=== PATIENT | male | born 1960 | race African-American/Black ===

== ENCOUNTER 2018-06-13 12:33 | Inpatient (IN) | payer MEDICAID ==
[~2018-06-13] VITALS: Ht 190.5 cm; Wt 119.2 kg
[2018-06-13] MEDS ORDERED: HYDROmorphone HCL 2 MG/ML VL IV ONE (14:00)
[2018-06-13] MEDS ORDERED: ONDANSETRON HCL 4 MG/2 ML VIAL IV ONE (14:00)
[2018-06-13 14:54] LABS: Basophils # (auto) 0.1 uL; Basophils % (auto) 0.3 % (0.0-2.0); Eosinophils # (auto) 0 uL; Eosinophils % (auto) 0.1 % (0.0-7.0); Hematocrit 42.9 % (41.0-53.0); Hemoglobin 15.2 g/dL (13.5-17.5); Lymphocytes # (auto) 1.2 uL; Lymphocytes % (auto) 6.7 % (10.0-50.0); Mean Corpuscular Hemoglobin 30.5 pg (28.0-32.0); Mean Corpuscular Hgb Conc. 35.4 g/dL (32.0-36.0); Mean Corpuscular Volume 86.1 fL (80.0-100.0); Monocytes % (auto) 5.6 % (0.0-12.0); Neutrophils # (auto) 15.5 uL; Neutrophils % (auto) 87.3 % (37.0-80.0); Platelet Count (auto) 238 10^3/uL (140-450); Red Blood Cells 4.98 10^6/uL (4.5-5.90); Red Cell Distribution Width 13.1 % (11.8-14.3); White Blood Cell 17.8 10^3/uL (4.4-10.8)
[2018-06-13 15:05] LABS: INR 0.99 (0.9-1.15); Partial Thromboplastin Time 25.2 sec (23.78-33.04); Prothrombin Time 10.6 sec (9.27-12.13)
[2018-06-13 15:09] LABS: BUN/Creatinine Ratio 12.2; Calcium 8.9 mg/dL (8.5-10.1); Potassium 3.4 mmol/L (3.5-5.1)
[2018-06-13 15:11] LABS: Bilirubin, Total 0.5 mg/dL (0.2-1.0); Total Protein 7.6 g/dL (6.4-8.2)
[2018-06-13] MEDS ORDERED: LORazepam 0.5 MG TAB PO PRN (15:45)
[2018-06-13] MEDS ORDERED: TEMAZEPAM 15 MG CAP PO PRN (15:45)
[2018-06-13] MEDS ORDERED: POTASSIUM EFFERVESENT TAB 25 MEQ PO ONE (15:45)
[2018-06-13] MEDS ORDERED: LACTULOSE 20Gm/30ML SOLN PO PRN (15:45)
[2018-06-13] MEDS ORDERED: NITROGLYCERIN 0.4 MG SL TAB SL PRN (15:45)
[2018-06-13] MEDS ORDERED: MORPHINE SULFATE 4 MG/ML SYR/VIAL IV PRN (15:45)
[2018-06-13] MEDS: SODIUM CHLORIDE 0.9% 1,000 ML IV SCH ×2 (15:58→23:00)
[2018-06-13] MEDS ORDERED: METO-158 PO (17:21)
[2018-06-13] MEDS ORDERED: LIDO2SOL18 TD (17:21)
[2018-06-13] MEDS ORDERED: HYDR-4683 PO (17:21)
[2018-06-13] MEDS ORDERED: KEP500T PO (17:21)
[2018-06-13] MEDS ORDERED: FENO1TAB42 PO (17:21)
[2018-06-13] MEDS ORDERED: HYDR25TA4 PO (17:21)
[2018-06-13] MEDS: HYDROcodone-ACET 5/325MG TAB PO PRN (18:36)
[2018-06-13 19:11] LABS: Urine Bacteria NONE SEEN /hpf (None Seen); Urine Blood Negative /uL (Negative); Urine Specific Gravity 1.018 (1.001-1.035); Urine WBC 1 /hpf (0 - 3)
[2018-06-13] MEDS: PROMETHAZINE HCL 25 MG/ML 1ML IV PRN (20:39)
[2018-06-13] MEDS: MORPHINE SULFATE 4 MG/ML SYR/VIAL IV PRN (20:39)
[2018-06-13 21:40] VITALS: BP 137/76
--- NOTE | 2018-06-13 21:40 | NUR ---
Telemetry admit from [facility] admitted to Telemetry unit. Patient oriented to Breann ghosh RN, unit, room, bed, and unit policies regarding patient care and visiting hours. Patient now on continuous telemetry monitoring, tele box # [id number]. Patient weighed by bedscale and encouraged to call if he needs something. All questions and concerns addressed, patient verbalized understanding.
[2018-06-13 22:00] VITALS: BP 134/76
--- NOTE | 2018-06-13 23:15 | NUR ---
Hospitalist paged Need order for diet, awaiting call back.
--- NOTE | 2018-06-13 23:30 | NUR ---
Patients called Patients called to check status of patient. Password given and confirmed. Patients had questions regarding surgery and plan of care, informed her that she would need to speak with the doctor, she verbalized understanding. Informed that patient was resting. She stated that she would be in tomorrow morning to see patient.
[2018-06-14] MEDS: MORPHINE SULFATE 4 MG/ML SYR/VIAL IV PRN ×5 (04:36→23:07)
[2018-06-14] MEDS: PROMETHAZINE HCL 25 MG/ML 1ML IV PRN ×3 (04:36→17:36)
[2018-06-14 05:00] VITALS: BP 123/69
[2018-06-14 06:49] LABS: Basophils # (auto) 0 uL; Basophils % (auto) 0.1 % (0.0-2.0); Eosinophils # (auto) 0 uL; Eosinophils % (auto) 0.1 % (0.0-7.0); Hematocrit 38.7 % (41.0-53.0); Hemoglobin 13.8 g/dL (13.5-17.5); Lymphocytes # (auto) 1.2 uL; Lymphocytes % (auto) 8.3 % (10.0-50.0); Mean Corpuscular Hemoglobin 30.7 pg (28.0-32.0); Mean Corpuscular Hgb Conc. 35.8 g/dL (32.0-36.0); Mean Corpuscular Volume 85.8 fL (80.0-100.0); Monocytes # (auto) 1.5 uL; Monocytes % (auto) 10.5 % (0.0-12.0); Neutrophils # (auto) 11.2 uL; Platelet Count (auto) 199 10^3/uL (140-450); Red Blood Cells 4.51 10^6/uL (4.5-5.90); Red Cell Distribution Width 12.7 % (11.8-14.3); White Blood Cell 13.9 10^3/uL (4.4-10.8)
[2018-06-14 07:02] LABS: Albumin 3.2 g/dL (3.4-5.0); BUN/Creatinine Ratio 13.1; Calcium 8.2 mg/dL (8.5-10.1); Potassium 3.4 mmol/L (3.5-5.1)
[2018-06-14 07:05] LABS: Bilirubin, Total 0.9 mg/dL (0.2-1.0); Total Protein 6.5 g/dL (6.4-8.2)
--- NOTE | 2018-06-14 07:40 | NUR ---
Opening Shift Note Assumed care of patient, asleep. No S/S of distress/SOB. Will continue to monitor for changes Q1hr and PRN.
[2018-06-14 09:43] VITALS: BP 161/75
--- NOTE | 2018-06-14 10:53 | NUR ---
Patient states he wants to go to the bathroom. Offered bedpan, patient refused. Patient states "I want to go to the bathroom". Paged physical therapist.
--- NOTE | 2018-06-14 11:42 | NUR ---
Contacted Dr. Aparna Coleman. Left a message re: if okay to resume home medications: Keppra, Fenofibrate, Hydrochlorothiazide and Metoprolol.
[2018-06-14] MEDS ORDERED: METOPROLOL TARTRATE 50 MG TAB PO ONE (12:45)
[2018-06-14] MEDS ORDERED: HCTZ 25 MG TAB PO ONE (12:45)
[2018-06-14] MEDS ORDERED: LEVETIRACETAM 500 MG TAB PO ONE (12:45)
[2018-06-14 13:29] VITALS: BP 135/77
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
[2018-06-14] MEDS: PANTOPRAZOLE 40 MG TAB PO SCH (14:28)
--- NOTE | 2018-06-14 15:30 | NUR ---
Spoke to Dr. Benton. Dr. Benton states to have trapeze and markus's traction of 400 lbs. Addendum: 06/14/18 at 1606 by KATHIE INIGUEZ RN correction: 5 lbs traction.
--- NOTE | 2018-06-14 15:56 | NUR ---
Paged Physical therapist re: trapeze and traction.
[2018-06-14] MEDS: SODIUM CHLORIDE 0.9% 1,000 ML IV SCH (16:58)
[2018-06-14 17:20] VITALS: BP 141/91
--- NOTE | 2018-06-14 18:00 | NUR ---
Manoj PT at bedside.
--- NOTE | 2018-06-14 19:00 | NUR ---
Closing note Patient resting in bed, no signs of distress.
--- NOTE | 2018-06-14 19:10 | NUR ---
Opening Shift Note Assumed care of patient, awake and alert with at bedside. No S/S of distress or SOB. Instructed on POC and to call for assistance PRN, will continue to monitor for changes Q1hr and PRN.
[2018-06-14] MEDS: HYDROcodone-ACET 5/325MG TAB PO PRN (20:40)
[2018-06-14] MEDS ORDERED: FENOFIBRATE 48 MG TAB PO SCH (22:00)
--- NOTE | 2018-06-14 22:45 | NUR ---
IV removal IV DC'd from left forearm using clean sterile technique, catheter fully intact. Pressure dressing applied to site. Patient tolerated well.
--- NOTE | 2018-06-14 23:00 | NUR ---
IV insertion IV access obtained, via clean sterile technique by inserting 22 gauge catheter into right forearm after 2 attempts. IV secured properly. No trauma to site. Patient tolerated well.
[2018-06-14] MEDS: ATORVASTATIN 20 MG TAB PO SCH (23:03)
[2018-06-14] MEDS: HCTZ 25 MG TAB PO SCH (23:04)
[2018-06-14] MEDS: POTASSIUM EFFERVESENT TAB 25 MEQ PO SCH (23:04)
[2018-06-14] MEDS: LEVETIRACETAM 500 MG TAB PO SCH (23:05)
[2018-06-14] MEDS: METOPROLOL TARTRATE 50 MG TAB PO SCH (23:06)
[2018-06-14 23:40] VITALS: BP 145/73
[2018-06-15] MEDS: MORPHINE SULFATE 4 MG/ML SYR/VIAL IV PRN ×5 (05:09→22:32)
[2018-06-15 05:37] VITALS: BP 132/84
[2018-06-15 07:04] LABS: BUN/Creatinine Ratio 16.3; Calcium 8.6 mg/dL (8.5-10.1); Magnesium 1.9 mg/dL (1.6-2.6); Potassium 3.5 mmol/L (3.5-5.1)
[2018-06-15] MEDS: SODIUM CHLORIDE 0.9% 1,000 ML IV SCH (07:55)
--- NOTE | 2018-06-15 08:56 | NUR ---
Dr. Isaac at bedside.
[2018-06-15 09:00] VITALS: BP 131/72
[2018-06-15] MEDS: HCTZ 25 MG TAB PO SCH ×2 (09:23→21:37)
[2018-06-15] MEDS: METOPROLOL TARTRATE 50 MG TAB PO SCH ×2 (09:24→21:37)
[2018-06-15] MEDS: LEVETIRACETAM 500 MG TAB PO SCH ×2 (09:24→21:36)
[2018-06-15] MEDS: PANTOPRAZOLE 40 MG TAB PO SCH (09:24)
[2018-06-15] MEDS: POTASSIUM EFFERVESENT TAB 25 MEQ PO SCH ×2 (09:24→21:37)
[2018-06-15] MEDS: PROMETHAZINE HCL 25 MG/ML 1ML IV PRN ×4 (09:43→22:37)
[2018-06-15 13:00] VITALS: BP 139/86
[2018-06-15] MEDS: HYDROcodone-ACET 5/325MG TAB PO PRN (15:25)
[2018-06-15 17:00] VITALS: BP 123/79
--- NOTE | 2018-06-15 19:00 | NUR ---
CLOSING NOTE PATIENT RESTING IN BED, NO SIGNS OF DISTRESS NOTED.
--- NOTE | 2018-06-15 19:54 | NUR ---
open note assumed care of pt. upon entering room, pt awake and alert. no s/s distress noted or expressed. pt in traction, no issues at this time. updated on plan of care. call light in reach. will continue to monitor.
[2018-06-15] MEDS ORDERED: LACTULOSE 20Gm/30ML SOLN PO ONE (21:00)
[2018-06-15] MEDS: ATORVASTATIN 20 MG TAB PO SCH (21:36)
[2018-06-15 21:44] VITALS: BP 125/69
[2018-06-16] MEDS: SODIUM CHLORIDE 0.9% 1,000 ML IV SCH (00:35)
[2018-06-16] MEDS: MORPHINE SULFATE 4 MG/ML SYR/VIAL IV PRN ×4 (04:41→18:55)
[2018-06-16 04:52] VITALS: BP 130/76
--- NOTE | 2018-06-16 07:25 | NUR ---
Opening Shift Note Assumed care of patient, awake and alert. No S/S of distress. Instructed on POC and to call for assist PRN, will continue to monitor for changes Q1hr and PRN.
[2018-06-16 07:32] LABS: Partial Thromboplastin Time 28.9 sec (23.78-33.04); Prothrombin Time 10.7 sec (9.27-12.13)
[2018-06-16] MEDS: PROMETHAZINE HCL 25 MG/ML 1ML IV PRN ×3 (08:45→18:56)
[2018-06-16 08:59] VITALS: BP 123/81
[2018-06-16] MEDS: POTASSIUM EFFERVESENT TAB 25 MEQ PO SCH ×2 (10:00→21:29)
[2018-06-16] MEDS: PANTOPRAZOLE 40 MG TAB PO SCH (10:00)
[2018-06-16] MEDS: HCTZ 25 MG TAB PO SCH ×2 (10:00→21:30)
[2018-06-16] MEDS: LEVETIRACETAM 500 MG TAB PO SCH ×2 (10:00→21:31)
[2018-06-16] MEDS: METOPROLOL TARTRATE 50 MG TAB PO SCH ×2 (10:00→21:31)
--- NOTE | 2018-06-16 10:16 | NUR ---
Called pre-op, spoke to She, re: time of surgery. She states: around 3pm. and patient updated.
[2018-06-16 12:44] VITALS: BP 140/84
--- NOTE | 2018-06-16 15:00 | NUR ---
Patient was taken to pre-op via bed. No signs of distress noted. Report given to pre-op RN.
[2018-06-16] MEDS ORDERED: ceFAZolin 1GM/50ML 100 ML IV ONE (15:09)
[2018-06-16] MEDS ORDERED: fentaNYL CITRATE 5 ML ONE (15:23)
[2018-06-16] MEDS ORDERED: ROCURONIUM 10MG/ML 10ML VIAL IV ONE (15:24)
[2018-06-16] MEDS ORDERED: PROPOFOL 10 MG/ML 20 ML IV ONE (15:24)
[2018-06-16] MEDS ORDERED: MIDAZOLAM HCL 1MG/1ML-2 ML VIAL ONE (15:25)
[2018-06-16] MEDS ORDERED: MORPHINE SULF(PF) 0.5MG/ML 10ML VIAL ONE (16:00)
[2018-06-16] MEDS ORDERED: BUPIVACAINE W/ EPINEPH 0.25% INJ 50ML MDV ONE (16:01)
[2018-06-16] MEDS ORDERED: VANCOMYCIN HCL 1000 MG VL ONE (16:03)
[2018-06-16] MEDS ORDERED: TRANEXAMIC ACID 10 ML ONE (16:08)
[2018-06-16 16:59] VITALS: BP 160/73
[2018-06-16] MEDS ORDERED: HYDROmorphone HCL 2 MG/ML VL ONE (17:11)
[2018-06-16] MEDS ORDERED: MORPHINE SULFATE 4 MG/ML SYR/VIAL IV PRN (17:30)
[2018-06-16] MEDS ORDERED: NITROGLYCERIN 0.4 MG SL TAB SL PRN (17:30)
--- NOTE | 2018-06-16 18:00 | NUR ---
Patient is back and transferred to room 287 B. No signs of distress noted. Dressing on left hip dry and intact.
[2018-06-16] MEDS ORDERED: ePHEDrine SULFATE 50 MG/ML AMP IV PRN (18:15)
[2018-06-16] MEDS ORDERED: HYDROmorphone HCL 2 MG/ML VL IV PRN (18:15)
[2018-06-16] MEDS ORDERED: ONDANSETRON HCL 4 MG/2 ML VIAL IV ONE (18:15)
[2018-06-16] MEDS ORDERED: hydrALAZINE HCL 20 MG/ML VL IV PRN (18:15)
[2018-06-16] MEDS: LACTATED RINGER'S 1,000 ML IV SCH (18:38)
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
[2018-06-16] MEDS: HYDROcodone-ACET 5/325MG TAB PO PRN (21:30)
[2018-06-16] MEDS: ATORVASTATIN 20 MG TAB PO SCH (21:32)
[2018-06-16] MEDS: ceFAZolin 1GM 2 GM in D5W 5% 100 ML IV SCH (21:33)
[2018-06-16 22:33] VITALS: BP 141/88
[2018-06-17] MEDS: LACTATED RINGER'S 1,000 ML IV SCH ×2 (03:16→13:38)
[2018-06-17] MEDS: MORPHINE SULFATE 4 MG/ML SYR/VIAL IV PRN ×4 (05:02→20:27)
[2018-06-17 05:14] VITALS: BP 142/88
[2018-06-17] MEDS: ceFAZolin 1GM 2 GM in D5W 5% 100 ML IV SCH ×2 (06:14→14:13)
[2018-06-17 06:38] LABS: Hematocrit 37.4 % (41.0-53.0); Hemoglobin 13.1 g/dL (13.5-17.5)
[2018-06-17 06:55] LABS: Calcium 7.9 mg/dL (8.5-10.1); Potassium 3.5 mmol/L (3.5-5.1)
[2018-06-17 07:03] LABS: Albumin 2.6 g/dL (3.4-5.0); BUN/Creatinine Ratio 26.3; Bilirubin, Total 1.2 mg/dL (0.2-1.0); Total Protein 6.3 g/dL (6.4-8.2)
[2018-06-17] MEDS: ACETAMINOPHEN 500 MG TAB PO PRN ×2 (07:15→18:52)
--- NOTE | 2018-06-17 07:15 | NUR ---
COOLING MEASURES ICE PACKS APPLIED BILATERALLY TO PATIENTS ARMPITS. PATIENTS BLANKETS REMOVED. PATIENT GIVEN TYLENOL PRN FOR FEVER. PATIENTS TEMP IS 102.6F ORAL AT THIS TIME.
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
--- NOTE | 2018-06-17 08:51 | NUR ---
ORDER AND CLINICALS FAXED TO LOCATED WITHIN [facility] FOR REVIEW. AWAITING CALL BACK
[2018-06-17 09:00] VITALS: BP 140/82
[2018-06-17] MEDS: ENOXAPARIN SOD 40 MG/0.4 ML SYRINGE SC SCH (09:32)
[2018-06-17] MEDS: PANTOPRAZOLE 40 MG TAB PO SCH (09:32)
[2018-06-17] MEDS: POTASSIUM EFFERVESENT TAB 25 MEQ PO SCH ×2 (09:32→23:06)
[2018-06-17] MEDS: HCTZ 25 MG TAB PO SCH ×2 (09:34→23:06)
[2018-06-17] MEDS: LEVETIRACETAM 500 MG TAB PO SCH ×2 (09:34→23:06)
[2018-06-17] MEDS: METOPROLOL TARTRATE 50 MG TAB PO SCH ×2 (09:35→23:07)
--- NOTE | 2018-06-17 11:30 | NUR ---
OUT OF BED TO BSC WITH PT, TOLERATED WELL, BACK TO BED AND RESTING ON BED AT THIS MOMENT, WILL CONTINUE MONITORING.
[2018-06-17] MEDS: HYDROcodone-ACET 5/325MG TAB PO PRN ×2 (11:47→18:34)
--- NOTE | 2018-06-17 12:44 | NUR ---
Nutrition Assessment Notes Please see attached link for complete assessment Est. Needs ABW [id number] kcal (23-25 kcal/kgBW), 81-102 gms pro (0.8-1.0 gms/kgBW). Will continue to monitor pertinent labs and reassess nutrient need prn. Addendum: 06/17/18 at [address] Amended: Links added.
[2018-06-17 13:00] VITALS: BP 129/80
--- NOTE | 2018-06-17 13:49 | NUR ---
NOT IN DISTRESS, RESTING ON BED AND TALKING ON THE PHONE, PHARMACY WAS CONTACTED FOR 1400 ANCEF IV PB DOSE, WAITING FOR MEDICATION TO BE TUBED REPORTED BY PHARMACY.
[2018-06-17] MEDS ORDERED: MORPHINE SULFATE 4 MG/ML SYR/VIAL IV PRN (14:30)
[2018-06-17 17:00] VITALS: BP 135/75
--- NOTE | 2018-06-17 17:42 | NUR ---
NOT IN DISTRESS, RESTING ON BED, DEEP BREATHING AND COUGHING ENCOURAGED, T=100.9, DR. MOORE WAS CALLED TO BE NOTIFIED AND LEFT A MESSAGE, WAITING FOR CALL BACK, WILL CONTINUE MONITORING.
[2018-06-17] MEDS ORDERED: VANCOMYCIN PER PHARMACY 0 MG IV SCH (19:00)
[2018-06-17] MEDS ORDERED: cefTRIAXone 1GM/50ML D5W 50 ML IV ONE (19:00)
[2018-06-17] MEDS ORDERED: VANCOMYCIN 1GM/250ML 250 ML IV ONE (19:00)
--- NOTE | 2018-06-17 19:13 | NUR ---
T=101.4, regular Tylenol PO PRN was given and cooling measures provided, contacted, stat B/C x2 Rocephin and Vancomycin IV PB was ordered, order pending.
--- NOTE | 2018-06-17 19:18 | NUR ---
Not in distress report was given to the nightclub manager RN.
--- NOTE | 2018-06-17 20:00 | NUR ---
IV insertion IV access obtained, via clean sterile technique by inserting 20 gauge catheter at Left FA after 1 attempt. IV secured properly. No trauma to site. Patient tolerated well. NOTE: Patient requesting IV to left hand/wrist be discontinued because he is uncomfortable with the spot it is in.
--- NOTE | 2018-06-17 20:05 | NUR ---
IV removal IV DC'd left hand/wrist with clean sterile technique, catheter fully intact. Pressure dressing applied to site. Patient tolerated well.
--- NOTE | 2018-06-17 20:10 | NUR ---
TEMP REASSESS TEMP NOW 101.3F ORAL. TEMP IN ROOM LOWERED. ICE PACKS APPLIED TO ARMPITS BILATERALLY. COOL CLOTHE TO PATIENTS HEAD. PATIENT CURRENTLY RUNNING VANCOMYCIN 1GM IV PER ORDERS.
--- NOTE | 2018-06-17 21:20 | NUR ---
TEMP REASSESS TEMP NOW 98.8F ORAL. ICE PACKS REMOVED FROM ARMPITS BILATERALLY. CLOTHE REMOVED FROM PATIENTS HEAD. VANCOMYCIN INFUSION COMPLETE. PATIENT NOW SALINE LOCKED.
[2018-06-17 22:00] VITALS: BP 147/78
[2018-06-17] MEDS: ATORVASTATIN 20 MG TAB PO SCH (23:07)
[2018-06-18] MEDS: MORPHINE SULFATE 4 MG/ML SYR/VIAL IV PRN ×3 (04:20→17:20)
--- NOTE | 2018-06-18 04:30 | NUR ---
Corrales catheter dc'd Order to discontinue corrales catheter. Corrales dc'd with clean technique following deflation of balloon. Patient tolerated well with no complaints of pain. Continue care. Urinal provided to patient.
--- NOTE | 2018-06-18 04:40 | NUR ---
PARTIAL LINEN CHANGE PATIENT CLEANED AND NEW GOWN PROVIDED. SMEAR OF BM NOTED. SCD'S REMAIN TO BLE. NO WOUNDS/DISCOLORATION NOTED TO SACRUM. DRESSING TO LEFT HIP C/D/I. NO DRAINAGE NOTED.
[2018-06-18 04:58] LABS: Hemoglobin 13.1 g/dL (13.5-17.5)
[2018-06-18 05:55] VITALS: BP 143/83
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
[2018-06-18 08:43] VITALS: BP 147/86
[2018-06-18] MEDS ORDERED: cefTRIAXone 1GM/50ML D5W 50 ML IV SCH (09:00)
[2018-06-18] MEDS: HCTZ 25 MG TAB PO SCH (10:01)
[2018-06-18] MEDS: LEVETIRACETAM 500 MG TAB PO SCH (10:01)
[2018-06-18] MEDS: PANTOPRAZOLE 40 MG TAB PO SCH (10:02)
[2018-06-18] MEDS: METOPROLOL TARTRATE 50 MG TAB PO SCH (10:02)
[2018-06-18] MEDS: ENOXAPARIN SOD 40 MG/0.4 ML SYRINGE SC SCH (10:03)
[2018-06-18] MEDS: POTASSIUM EFFERVESENT TAB 25 MEQ PO SCH (10:04)
[2018-06-18] MEDS: PROMETHAZINE HCL 25 MG/ML 1ML IV PRN ×2 (10:05→17:20)
[2018-06-18] MEDS ORDERED: VANCOMYCIN 1,500 MG in D5W 5% 250 ML IV SCH (11:00)
[2018-06-18 11:55] VITALS: BP 157/94
--- NOTE | 2018-06-18 12:00 | NUR ---
OUT OF BED TO THE CHAIR, BACK TO BED, TOLERATED WELL, PENDING D/C TO SNF TODAY, SS WAS CONTACTED FOR FOLLOW UP.
--- NOTE | 2018-06-18 15:11 | NUR ---
PATIENT HAS BEEN ACCEPTED AT [facility] [place] [facility] [place] HERNANDEZ NUMBER FOR REPORT IS [phone] AUTH [id number]. [facility] WILL TRANSPORT PATIENT AT 5:00PM. AUTH [id number]. NUMBER [phone].
[2018-06-18] MEDS: HYDROcodone-ACET 5/325MG TAB PO PRN (15:13)
[2018-06-18 16:03] VITALS: BP 136/80
[2018-06-18 16:47] VITALS: BP 135/80
--- NOTE | 2018-06-18 17:00 | NUR ---
PENDING D/C TO [facility], POCKET MACHINE OPERATOR TIME ARRANGED WITH [facility] AT 1700, D/C INFORMATION AND EDUCATION PROVIDED, INFORMATION PAPER HANDED TO THE PATIENT, VERBALIZED UNDERSTANDING, IS AWARE, C/O PAIN L=7-8/10 MORPHINE IV PRN WAS GIVEN, LARGE BM X2 ON BED CRYSTAL REPORTED, RESTING ON BED, WILL CONTINUE MONITORING.
--- NOTE | 2018-06-18 18:38 | NUR ---
[facility] WAS CALLED ON [phone], REPORT WAS GIVEN TO NICOLA LOWERY THE RECEIVING NURSE TO R#[id number], INFORMATION WAS VALIDATED AND CLARIFIED.
--- NOTE | 2018-06-18 19:40 | NUR ---
D/C IV SITE AND TELE MONITOR, LT. HIP PAIN L=410, NOT IN DISTRESS, VS T=98.9 RR=18 SAT=95% P=88 BP 136/82, D/C ON [facility] PICKED UP BY [facility], [facility] WAS CALLED ON [phone] AND NOTIFIED, TOOK ALL BELONGINGS AND LEFT NOTHING BEHIND.
== END 2018-06-18 19:35 | DRG 301 ==
LOC: EDBD 12:33 → ER 12:33 → TELE 15:38 → TELE-WESTW 21:40
PROVIDERS: ADMIT Internal Medicine; ATTEND Hospitalist
PROC: 0SRS019 Replacement of Left Hip Joint, Femoral Surface with Metal Synthetic Substitute, Cemented, Open Approach (ICD-10-PCS; principal; 2018-06-16 15:18)
DX: M80.052A Age-related osteoporosis with current pathological fracture, left femur, initial encounter for fracture (principal); G82.20 Paraplegia, unspecified; I11.9 Hypertensive heart disease without heart failure; I10 Essential (primary) hypertension; E78.5 Hyperlipidemia, unspecified; E87.6 Hypokalemia; R91.1 Solitary pulmonary nodule; K59.00 Constipation, unspecified; G40.909 Epilepsy, unspecified, not intractable, without status epilepticus; W18.30XA Fall on same level, unspecified, initial encounter; Z80.0 Family history of malignant neoplasm of digestive organs; Z80.3 Family history of malignant neoplasm of breast; Z87.828 Personal history of other (healed) physical injury and trauma; Z87.81 Personal history of (healed) traumatic fracture
CPT/HCPCS: 36415; 71045; 72170; 73502; 80048; 80053; 81001; 83735; 85014; 85018; 85025; 85610; 85730; 86850; 86900; 86901; 87040; 93005; 93306; 93970; 94761; 96374; 96375; A6257; G0378; J0690; J0696; J2250; J2405; J2704; J7060

== ENCOUNTER 2018-08-11 17:22 | Inpatient (IN) | payer MEDICAID | END 2018-08-15 19:08 | LOC: ER 17:22 → OVERFLOW 08-12 06:07 → WEST WING 08-12 17:03 | PROC: 0SWB08Z Revision of Spacer in Left Hip Joint, Open Approach (ICD-10-PCS; principal; 2018-08-13 07:12) | PROC: 0SRS0JZ Replacement of Left Hip Joint, Femoral Surface with Synthetic Substitute, Open Approach (ICD-10-PCS; 2018-08-13 07:12) | DX: T84.021A Dislocation of internal left hip prosthesis, initial encounter (principal); E78.5 Hyperlipidemia, unspecified; G40.909 Epilepsy, unspecified, not intractable, without status epilepticus; I10 Essential (primary) hypertension ==